=== PATIENT | female | born 1955 | race Caucasian/White ===

== ENCOUNTER 2017-06-22 12:51 | Outpatient (CLI) | payer OTHER ==
--- NOTE | 2017-06-23 15:16 | Mammography Report ---
DIGITAL SCREENING MAMMOGRAM: 06/22/2017 CLINICAL INDICATION: A 62-year-old, for screening. COMPARISON: 03/2015, 08/2012, 02/2008. TECHNIQUE: Routine CC and MLO projections were obtained of the breasts. FINDINGS: The breasts demonstrate scattered fibroglandular densities bilaterally. Punctate, typicall y benign calcifications are present. No suspicious masses, clustered microcalcifications, or regions of architectural distortion are identified. IMPRESSION: BENIGN FINDINGS. RECOMMENDATION: ROUTINE ANNUAL SCREENING UNLESS OTHERWISE CLINICALLY INDICATED. BIRADS CATEGORY 2-BENIGN FINDINGS. STANDARD QUALIFYING STATEMENTS 1. This examination was reviewed with the aid of Computer-Aided Detection (CAD). 2. A negative or benign imaging report should not delay biopsy if clinically suspicious findings are present. Consider surgical consultation if warranted. More than 5% of cancers are not identified by i maging. 3. Dense breasts may obscure an underlying neoplasm. JOB #: [id number] EXT JOB #:[id number]
== END 2017-06-22 12:52 | disposition home or self-care (01) ==
LOC: DI 12:51
PROVIDERS: ATTEND Internal Medicine
DX: Z12.31 Encounter for screening mammogram for malignant neoplasm of breast (principal)
CPT/HCPCS: 77067

== ENCOUNTER 2017-06-22 12:53 | Outpatient (CLI) | payer OTHER ==
--- NOTE | 2017-06-23 09:29 | DEXA Report ---
DEXA: 06/22/2017 CLINICAL INDICATION: Postmenopausal. TECHNIQUE: Dual energy x-ray absorptiometry (DXA) was performed on a [employer] system. Regions measured are the AP spine, femoral neck, and, if needed, forearm. COMPARISON: None. In accordance with the International Society for Clinical Densitometry (ISCD) guidelines, data from previous exams may be reanalyzed using current recommendations and techniques. This is done to allow a more accurate basis for comparison with the current study. FINDINGS: The data for the lumbar spine is as follows: REGION BMD (g/cm/cm) T-SCORE Z-SCORE L1 1.301 1.4 2.8 L2 1.368 1.4 2.8 L3 1.323 1.0 2.4 L4 1.258 0.5 1.9 TOTAL 1.309 1.1 2.5 NOTE: All evaluable vertebrae are used for classification. The data for the hip is as follows: REGION BMD (g/cm/cm) T-SCORE Z-SCORE Neck 0.775 -1.9 -0.6 TOTAL 0.888 -0.9 0.1 NOTE: The femoral neck or total proximal femur, whichever is lowest, is used for classification. IMPRESSION: THE WHO CLASSIFICATION BASED ON THE INTERNATIONAL REFERENCE STANDARD IS OSTEOPENIA. THE FRACTURE RISK IS INCREASED. RECOMMENDATION: Patients with diagnosis of osteoporosis or osteopenia should have regular bone mineral density assessment. For those eligible for Medicare, routine testing is allowed once every 2 years. Testing frequency can be increased for patients who have rapidly progressing disease or for those who are receiving medical therapy to restore bone mass. COMMENT: World Health Organization (WHO) definitions for osteoporosis and osteopenia: NORMAL BMD: T-score at -1.0 or higher, fracture risk is low. OSTEOPENIA BMD: T-score between -1.0 and -2.5, fracture risk is increased. OSTEOPOROSIS BMD: T-score at -2.5 or lower, fracture risk high. National Osteoporosis Foundation recommends: 1. Obtain adequate dietary calcium (at least 1200 mg per day) and vitamin D (400 -800 international units per day). 2. Participate, as appropriate, in regular weightbearing and muscle- strengthening exercise. 3. Avoid tobacco use and reduce alcohol and caffeine intake. 4. For more detailed information see the website at www.NOF.org. MTDD
== END 2017-06-22 12:54 | disposition home or self-care (01) ==
LOC: DI 12:53
PROVIDERS: ATTEND Internal Medicine
DX: Z13.820 Encounter for screening for osteoporosis (principal); M85.88 Other specified disorders of bone density and structure, other site; Z78.0 Asymptomatic menopausal state
CPT/HCPCS: 77080

== ENCOUNTER 2018-07-23 14:56 | Emergency (ER) | payer MEDICARE, OTHER ==
[2018-07-23 15:58] LABS: BASOPHILS # (AUTO) 0.1 10^3/uL (0.0-0.1); BASOPHILS % (AUTO) 0.9 %; EOSINOPHILS # (AUTO) 0.2 10^3/uL (0.0-0.7); EOSINOPHILS % (AUTO) 2.3 %; HGB - HEMOGLOBIN 13.6 g/dL (12.0-16.0); LYMPHOCYTES # (AUTO) 1.9 10^3/uL (1.5-3.5); LYMPHOCYTES % (AUTO) 26.1 %; MEAN CORPUSCULAR HGB CONC 34.2 g/dL (32.0-36.0); MEAN CORPUSCULAR VOLUME 93.7 fL (81.0-99.0); MEAN PLATELET VOLUME 6.7 fL (7.9-10.8); MONOCYTES # (AUTO) 0.5 10^3/uL (0.0-1.0); MONOCYTES % (AUTO) 6.5 %; NEUTROPHILS # (AUTO) 4.7 10^3/uL (1.5-6.6); NEUTROPHILS % (AUTO) 64.2 %; PLT - PLATELET COUNT 280 10^3/uL (130-450); RED BLOOD COUNT 4.23 10^6/uL (4.20-5.40); RED CELL DISTRIBUTION WIDTH 13.4 % (12.0-15.0); WHITE BLOOD COUNT 7.4 x10^3/uL (4.8-10.8)
[2018-07-23 16:03] LABS: ALBUMIN 4.4 g/dL (3.2-5.5); ALBUMIN/GLOBULIN RATIO 1.5 (1.0-2.2); BILIRUBIN,TOTAL 0.7 mg/dL (0.2-1.0); CALCIUM 10.1 mg/dL (8.5-10.3); CREATININE 0.6 mg/dL (0.4-1.0); TOTAL PROTEIN 7.4 g/dL (6.7-8.2)
--- NOTE | 2018-07-23 17:19 | XRAY Report ---
Reason: chest pain Procedure Date: 07/23/2018 Accession Number: [id number] / [id number] Procedure: XR - Chest 1 View X-Ray CPT Code: 92572 FULL RESULT: EXAM: CHEST RADIOGRAPHY EXAM DATE: 07/23/2018 04:48 PM. CLINICAL HISTORY: Left sided chest pain today COMPARISON: 04/23/2011 8:51 AM. TECHNIQUE: 1 view. FINDINGS: Lungs/Pleura: No focal opacities evident. No pleural effusion. No pneumothorax. Mediastinum: Within exam limitations, the cardiomediastinal contour is normal. Other: Multiple old healed right posterior rib fractures again noted. IMPRESSION: No acute cardiopulmonary disease seen. RADIA
[2018-07-23] MEDS ORDERED: MORPHINE 2 MG/ML SYRINGE IVP STA (17:24)
[2018-07-23] MEDS ORDERED: IOPAMIDOL-300 100 ML VIAL ONE (17:29)
[2018-07-23] MEDS ORDERED: IOPAMIDOL-300 100 ML VIAL IVP ONE (18:32)
--- NOTE | 2018-07-23 18:41 | CT Report ---
Reason: L chest pain to neck and back Procedure Date: 07/23/2018 Accession Number: [id number] / [id number] Procedure: CT - Chest Angio (AORTA) CPT Code: FULL RESULT: EXAM: CT ANGIOGRAM CHEST EXAM DATE: 07/23/2018 06:22 PM. CLINICAL HISTORY: Chest pain last night and severe chest and back pain. COMPARISONS: None. TECHNIQUE: Routine axial helical CT angiographic imaging was performed through the chest. IV Contrast: 100 ML ISOVUE 300. Reconstructions: Coronal, sagittal, and 3D MIP reconstructions of the aorta. In accordance with CT protocol optimization, one or more of the following dose reduction techniques were utilized for this exam: automated exposure control, adjustment of mA and/or KV based on patient size, or use of iterative reconstructive technique. FINDINGS: Mediastinum: No thoracic aortic aneurysm or dissection. Small aortic valve calcification. Coronary artery calcification. Heart size is within normal limits. No mediastinal or hilar lymphadenopathy. Small hiatal hernia. No evidence for pulmonary emboli. Lungs: No acute findings. No airspace disease, consolidation, pleural effusion or pneumothorax. No acute findings in the upper abdomen. Bones: No acute bone findings. IMPRESSION: 1. No thoracic aortic aneurysm or dissection. 2. No acute findings. 3. Small hiatal hernia. RADIA
--- NOTE | 2018-07-23 19:07 | ED Physician Documentation ---
PD HPI CHEST PAIN - Stated complaint Stated Complaint: CP - Chief complaint Chief Complaint: General - History obtained from History obtained from: Patient, Family - History of Present Illness Timing - onset: Yesterday Timing - onset during: Rest Timing - duration: Days (1) Timing - details: Gradual onset, Constant Pain level max: 8 Pain level now: 8 Quality: Aching, Pain Location: Left chest Radiation: Back, Abdominal Improved by: Nothing Worsened by: No: Exertion, Inspiration, Eating, Movement, Palpation, Position Associated symptoms: No: Shortness of air, Diaphoresis, Nausea, Vomiting, Feeling faint / dizzy, General Weakness, Palpitations, Cough Similar symptoms before: Has not had sx before Recently seen: Not recently seen - Additional information Additional information: Patient is a 63-year-old female who states that she had chest pressure starting today that started on her left rib and is now spread up to the shoulder and her left neck and left arm. It has been constant all day long. Nothing makes it better or worse. Has never had similar symptoms in the past. States it feels like a knife and is going to her back as well. Review of Systems Ten Systems: 10 systems reviewed and negative Constitutional: denies: Fever, Chills Ears: denies: Ear pain Nose: denies: Rhinorrhea / runny nose, Congestion Throat: denies: Sore throat Cardiac: denies: Palpitations GI: denies: Vomiting, Diarrhea Skin: denies: Rash Musculoskeletal: denies: Neck pain, Back pain Neurologic: denies: Focal weakness, Numbness, Headache PD PAST MEDICAL HISTORY - Past Medical History Cardiovascular: High cholesterol Endocrine/Autoimmune: HyPOthyroidism Psych: Depression Musculoskeletal: Osteoarthritis - Past Surgical History Past Surgical History: Yes Ortho: Other Neuro: Craniotomy - Present Medications Home Medications: Ambulatory Orders Medication Instructions Recorded Confirmed Dextroamphetamine/Amphetamine 20 mg PO DAILY 05/01/14 05/23/14 [Adderall 20 mg Tablet] Levothyroxine [Synthroid] 100 mcg PO DAILY 05/01/14 05/23/14 Simvastatin 20 mg PO DAILY 05/01/14 05/23/14 buPROPion [Wellbutrin Sr] 300 mg PO DAILY 05/01/14 05/23/14 lamoTRIgine [Lamictal] 100 mg PO DAILY 05/23/14 05/23/14 Hydrocodone/Acetaminophen 1 - 2 each PO Q6H PRN #10 tablet 07/23/18 [Hydrocodon-Acetaminophen 5-325] - Allergies Allergies/Adverse Reactions: Allergies Allergy/AdvReac Type Severity Reaction Status Date / Time No Known Drug Allergies Allergy Verified 05/01/14 08:12 - Social History Does the pt smoke?: No Smoking Status: Never smoker Does the pt drink ETOH?: No Does the pt have substance abuse?: No - POLST Patient has POLST: No PD ED PE NORMAL - Vitals Vital signs reviewed: Yes - General General: Alert and oriented X 3, No acute distress - HEENT HEENT: PERRL, Moist mucous membranes - Neck Neck: Supple, no meningeal sign, No JVD, No bruit - Cardiac Cardiac: RRR, No murmur, Strong equal pulses - Respiratory Respiratory: No respiratory distress, Clear bilaterally - Abdomen Abdomen: Soft, Non tender, Non distended - Derm Derm: Warm and dry, No rash - Extremities Extremities: No edema, No calf tenderness / cord - Neuro Neuro: Alert and oriented X 3, 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, No motor deficit, No sensory deficit Eye Opening: Spontaneous Motor: Obeys Commands Verbal: Oriented GCS Score: 15 - Psych Psych: Normal mood, Normal affect Results - Vitals Vitals: Vital Signs - 24 hr 07/23/18 07/23/18 07/23/18 15:15 17:31 19:44 Temperature 36.4 C L Heart Rate 95 81 82 Respiratory 18 12 16 Rate Blood Pressure 178/98 H 162/93 H 159/86 H O2 Saturation 100 95 98 Oxygen O2 Source Room air - EKG (time done) 1902 Rate: Rate (enter#) (72) Rhythm: NSR Darby: Normal Intervals: Normal [place] QRS: LVH Ischemia: Normal ST segments 1504 Rate: Rate (enter#) (98) Rhythm: NSR Darby: Normal Intervals: Normal [place] QRS: LVH Ischemia: Normal ST segments - Labs Labs: Laboratory Tests 07/23/18 07/23/18 07/23/18 15:45 15:45 15:45 WBC 7.4 RBC 4.23 Hgb 13.6 Hct 39.6 MCV 93.7 MCH 32.0 H MCHC 34.2 RDW 13.4 Plt Count 280 MPV 6.7 L Neut # (Auto) 4.7 Lymph # (Auto) 1.9 Denali # (Auto) 0.5 Eos # (Auto) 0.2 Baso # (Auto) 0.1 Absolute Nucleated RBC 0.01 Nucleated RBC % 0.1 Sodium 135 Potassium 4.1 Chloride 98 L Carbon Dioxide 26 Anion Gap 11.0 BUN 16 Creatinine 0.6 Estimated GFR (MDRD) 100 Glucose 99 Calcium 10.1 Total Bilirubin 0.7 AST 27 ALT 26 Alkaline Phosphatase 70 Troponin I < 0.04 Total Protein 7.4 Albumin 4.4 Globulin 3.0 Albumin/Globulin Ratio 1.5 Lipase 27 07/23/18 18:52 WBC RBC Hgb Hct MCV MCH MCHC RDW Plt Count MPV Neut # (Auto) Lymph # (Auto) Denali # (Auto) Eos # (Auto) Baso # (Auto) Absolute Nucleated RBC Nucleated RBC % Sodium Potassium Chloride Carbon Dioxide Anion Gap BUN Creatinine Estimated GFR (MDRD) Glucose Calcium Total Bilirubin AST ALT Alkaline Phosphatase Troponin I < 0.04 Total Protein Albumin Globulin Albumin/Globulin Ratio Lipase - Rads (name of study) cxr Radiology: Prelim report reviewed, EMP read contemporaneously, See rad report ( No acute disease) ct angio chest Radiology: Prelim report reviewed, EMP read contemporaneously, See rad report ( No acute abnormality) PD MEDICAL DECISION MAKING - ED course Complexity details: reviewed results, re-evaluated patient, considered differential (No ST elevation IN, no aortic dissection, no PE, no tension pneumothorax, no aortic aneurysm), d/w patient, d/w family ED course: Patient is a 63-year-old female with left-sided chest pain of unclear etiology. Negative troponin 2. No acute findings on EKG 2. Pain well controlled. No acute findings on chest x-ray or CT angiogram of the chest. No aortic dissection or pulmonary embolism. Will have her follow-up with her PCP for a cardiac stress test. Will place on pain medication and see how she progresses over the next 24 hours. Patient counseled regarding signs and symptoms for which I believe and urgent re-evaluation would be necessary. Patient with good understanding of and agreement to plan and is comfortable going home at this time This document was made in part using voice recognition software. While efforts are made to proofread this document, sound alike and grammatical errors may occur. - Sepsis Event Vital Signs: Vital Signs - 24 hr 07/23/18 07/23/18 07/23/18 15:15 17:31 19:44 Temperature 36.4 C L Heart Rate 95 81 82 Respiratory 18 12 16 Rate Blood Pressure 178/98 H 162/93 H 159/86 H O2 Saturation 100 95 98 Oxygen O2 Source Room air Departure - Departure Disposition: 01 Home, Self Care Clinical Impression: Chest pain Qualifiers: Chest pain type: unspecified Qualified Code(s): R07.9 - Chest pain, unspecified Condition: Good Instructions: ED Chest Pain Atypical Unkn Cause Follow-Up: Tiffany Castillo MD [Primary Care Provider] - Within 1 week Prescriptions: Hydrocodone/Acetaminophen [Hydrocodon-Acetaminophen 5-325] 1 - 2 each PO Q6H PRN #10 tablet PRN Reason: pain Comments: The cause of your symptoms is unclear today. Your tests are normal. Return if you worsen. Do not drink alcohol or drive while on narcotic pain medicine. Note that many narcotic pain relievers also contain tylenol/acetaminophen. Please ensure that your total dose of acetaminophen from all sources does not exceed 3 grams (3000mg) per day. You may constipated on this medication, take a stool softener such as "Colace" twice a day while you are on it. Also recommend a ucsi-frk-grkobce laxative such as senna or MiraLAX any day that you do not have a bowel movement. If you received narcotic pain medication in the emergency department, do not drive or operate machinery for the next 24 hours. Discharge Date/Time: 07/23/18 19:44
[2018-07-23] MEDS ORDERED: HYDROcod/ACETAM 5/325 MG TABLET PO STA (19:14)
[2018-07-23 19:44] VITALS: BP 159/86
== END 2018-07-23 19:44 | disposition home or self-care (01) ==
LOC: ED 14:56
DX: R07.9 Chest pain, unspecified (principal); R94.31 Abnormal electrocardiogram [ECG] [EKG]; E03.9 Hypothyroidism, unspecified; E78.00 Pure hypercholesterolemia, unspecified
CPT/HCPCS: 36415; 71045; 71275; 80053; 83690; 84484; 85025; 93005; 96374; 99283; A9270; J2270; Q9967

== ENCOUNTER 2018-08-31 12:32 | Outpatient (CLI) | payer MEDICARE, OTHER ==
[2018-08-31 13:08] LABS: BASOPHILS % (AUTO) 0.7 %; EOSINOPHILS # (AUTO) 0.2 10^3/uL (0.0-0.7); EOSINOPHILS % (AUTO) 3.5 %; HGB - HEMOGLOBIN 12.5 g/dL (12.0-16.0); LYMPHOCYTES # (AUTO) 1.8 10^3/uL (1.5-3.5); LYMPHOCYTES % (AUTO) 31.9 %; MEAN CORPUSCULAR HEMOGLOBIN 33.2 pg (27.0-31.0); MEAN CORPUSCULAR HGB CONC 34.9 g/dL (32.0-36.0); MEAN CORPUSCULAR VOLUME 94.9 fL (81.0-99.0); MEAN PLATELET VOLUME 6.4 fL (7.9-10.8); MONOCYTES # (AUTO) 0.4 10^3/uL (0.0-1.0); MONOCYTES % (AUTO) 7.4 %; NEUTROPHILS # (AUTO) 3.2 10^3/uL (1.5-6.6); NEUTROPHILS % (AUTO) 56.5 %; PLT - PLATELET COUNT 283 10^3/uL (130-450); RED BLOOD COUNT 3.78 10^6/uL (4.20-5.40); RED CELL DISTRIBUTION WIDTH 13.7 % (12.0-15.0); WHITE BLOOD COUNT 5.7 x10^3/uL (4.8-10.8)
== END 2018-08-31 12:33 | disposition home or self-care (01) ==
LOC: LAB 12:32
PROVIDERS: ATTEND Orthopaedic Surgery
DX: Z01.812 Encounter for preprocedural laboratory examination (principal)
CPT/HCPCS: 36415; 80051; 85025

== ENCOUNTER 2018-09-04 19:30 | Outpatient (CLI) | payer MEDICARE, OTHER | END 2018-09-04 19:31 | disposition critical access hospital (66) | LOC: EMS 19:30 | PROVIDERS: ATTEND Surgery | DX: R09.89 Other specified symptoms and signs involving the circulatory and respiratory systems (principal) | CPT/HCPCS: A0425; A0429 ==

== ENCOUNTER 2018-09-04 19:48 | Emergency (ER) | payer MEDICARE, OTHER ==
[2018-09-04] MEDS ORDERED: MAG HYDROX/AL HYDROX/SIMETH 30 ML UDC PO STA (20:00)
[2018-09-04] MEDS ORDERED: LIDOCAINE VISCOUS 2% 15 ML UDC MM STA (20:00)
--- NOTE | 2018-09-04 20:03 | ED Physician Documentation ---
History of Present Illness - Stated complaint Stated Complaint: FB IN THROAT - Chief complaint Chief Complaint: Resp - History obtained from History obtained from: Patient, Family, EMS - History of Present Illness Timing: Today (She was eating steak and felt like it got stuck. She is not having difficulty with her secretions or talking now, but still has some upper chest pain from it.) Review of Systems Constitutional: denies: Fever, Chills Nose: denies: Rhinorrhea / runny nose, Congestion Throat: reports: Sore throat Respiratory: reports: Reviewed and negative PD PAST MEDICAL HISTORY - Past Medical History Cardiovascular: High cholesterol Endocrine/Autoimmune: HyPOthyroidism Psych: Depression Musculoskeletal: Osteoarthritis - Past Surgical History Past Surgical History: Yes Ortho: Other Neuro: Craniotomy - Present Medications Home Medications: Ambulatory Orders Medication Instructions Recorded Confirmed Dextroamphetamine/Amphetamine 20 mg PO DAILY 05/01/14 09/04/18 [Adderall 20 mg Tablet] RX: Levothyroxine [Synthroid] 100 mcg PO DAILY 05/01/14 09/04/18 RX: Simvastatin 20 mg PO DAILY 05/01/14 09/04/18 buPROPion [Wellbutrin Sr] 300 mg PO DAILY 05/01/14 09/04/18 lamoTRIgine [Lamictal] 100 mg PO DAILY 05/23/14 09/04/18 - Allergies Allergies/Adverse Reactions: Allergies Allergy/AdvReac Type Severity Reaction Status Date / Time No Known Drug Allergies Allergy Verified 09/04/18 19:53 - Social History Does the pt smoke?: No Smoking Status: Never smoker Does the pt drink ETOH?: No Does the pt have substance abuse?: No - POLST Patient has POLST: No PD ED PE NORMAL - Vitals Vital signs reviewed: Yes - General General: Alert and oriented X 3, No acute distress - HEENT HEENT: Other (speaking normal, no noted POP FB) - Neck Neck: Supple, no meningeal sign, No bony TTP - Neuro Neuro: Alert and oriented X 3, Normal speech - Psych Psych: Normal mood, Normal affect Results - Vitals Vitals: Vital Signs - 24 hr 09/04/18 19:51 Temperature 36.7 C Heart Rate 100 Respiratory 17 Rate Blood Pressure 154/77 H O2 Saturation 97 Oxygen O2 Source Room air - Rads (name of study) 2v chest Radiology: EMP read contemporaneously (No pneumomediastinum or evidence of aspiration) PD MEDICAL DECISION MAKING - ED course ED course: On arrival she is able to tolerate PO liquids, so suspect esophageal FB resolved MACHINE TECHNICIAN Advised followup EGD- this is recurrent for her. - Sepsis Event Vital Signs: Vital Signs - 24 hr 09/04/18 19:51 Temperature 36.7 C Heart Rate 100 Respiratory 17 Rate Blood Pressure 154/77 H O2 Saturation 97 Oxygen O2 Source Room air Departure - Departure Disposition: 01 Home, Self Care Clinical Impression: Esophageal foreign body Condition: Good Record reviewed to determine appropriate education?: Yes Instructions: ED Foreign Body Esophageal Rslv Follow-Up: Denton Araujo MD [Provider Admit Priv/Credential] - Comments: As discussed, given that this is a recurrent issue you should follow-up with someone who can do an upper endoscopy, one such surgeon is listed on this form. Call his office for an appointment. Return if worse or if new symptoms develop. Consider eating just a soft diet for the next few days. Your blood pressure was elevated today on check into the emergency department. This does not mean that you have hypertension, it is a common phenomenon to come to the emergency department and have elevated blood pressure. I recommend that you see your primary care physician within the week to have it rechecked when you are feeling better. Discharge Date/Time: 09/04/18 20:55
--- NOTE | 2018-09-04 20:41 | XRAY Report ---
Reason: poss aspiration Procedure Date: 09/04/2018 Accession Number: [id number] / [id number] Procedure: XR - Chest 2 View X-Ray CPT Code: 28250 FULL RESULT: EXAM: CHEST RADIOGRAPHY EXAM DATE: 09/04/2018 08:24 PM. CLINICAL HISTORY: Trouble swallowing. Short of breath. Possible aspiration. COMPARISON: 07/23/2018 CT and chest x-ray. TECHNIQUE: 2 views. FINDINGS: Lungs/Pleura: No focal opacities evident. No pleural effusion. No pneumothorax. Normal volumes. Mediastinum: Heart size is normal. There is a hiatal hernia, as before with a transverse dimension measuring 7.6 cm. Aorta is mildly tortuous. There is mild to moderate gaseous distention of the esophagus. No evidence of pneumomediastinum. Other: Degenerative changes of the thoracic spine and both shoulders. IMPRESSION: 1. No acute disease in the chest. 2. Mild to moderate gaseous distention of the esophagus. 3. Hiatal hernia. 4. No evidence of pneumomediastinum. RADIA
[2018-09-04 21:00] VITALS: BP 131/84
== END 2018-09-04 20:55 | disposition home or self-care (01) ==
LOC: EDBD → EDUNIT# → ED 19:48
DX: T18.128A Food in esophagus causing other injury, initial encounter (principal); X58.XXXA Exposure to other specified factors, initial encounter; R03.0 Elevated blood-pressure reading, without diagnosis of hypertension; E78.00 Pure hypercholesterolemia, unspecified; E03.9 Hypothyroidism, unspecified
CPT/HCPCS: 71046; 99282; 99283; A9270

== ENCOUNTER 2021-12-19 07:05 | Outpatient (CLI) | payer MEDICARE, OTHER ==
--- NOTE | 2021-12-19 08:21 | Ultrasound Report ---
PROCEDURE: Head or Neck Soft Tissue INDICATIONS: HYPOTHYROIDISM TECHNIQUE: Real-time scanning was performed of the thyroid gland, with image documentation. COMPARISON: 01/16/2013, 10/08/2008 FINDINGS: Right: Thyroid lobe measures 3.7 x 1.1 x 1.3 cm. Left: Thyroid lobe measures 3.4 x 0.6 x 1.3 cm, and is homogenous in echotexture. Isthmus: 2 mm thick. Nodule number: 1 Location: Right thyroid inferiorly Size: 0.7 x 0.2 x 0.5 cm, prior 0.8 x 0.7 x 0.4 cm. Composition: Solid Echogenicity: Isoechoic Shape: wider than tall. Margins: Smooth Echogenic foci: None. Total points: 3 ACR TI-RADS category: 3 Nodule number: 2 Location: Right mid thyroid Size: 0.8 x 0.6 x 0.5 cm, prior 0.6 x 0.5 x 0.5 cm. Composition: Predominantly solid Echogenicity: Hypoechoic Shape: wider than tall. Margins: Irregular Echogenic foci: Punctate Total points: 9 ACR TI-RADS category: 5 The previously described isthmus nodule is not seen on the current study. IMPRESSION: Right-sided thyroid nodules are seen. There is a highly suspicious nodule seen within th e mid thyroid, which is increased in size compared to 2013. By published criteria, annual follow-up i s recommended. ACR TI-RADS definitions and recommendations: TI-RADS 1 (benign): 0 points. FNA not needed. TI-RADS 2 (not suspicious): 2 points. FNA not needed. TI-RADS 3 (mildly suspicious): 3 points. "FNA if 2.5 cm or larger, follow up if 1.5 cm or larger (at 1, 3, and 5 years). TI-RADS 4 (moderately suspicious): 4-6 points. "FNA if 1.5 cm or larger, follow up if 1 cm or larger (at 1, 2, 3, and 5 years). TI-RADS 5 (highly suspicious): 7 points or more. "FNA if 1 cm or larger, follow up if 0.5 cm or larger (every year for 5 years). Reviewed by: Howie Wynne MD on 12/19/2021 7:19 AM [place] Approved by: Howie Wynne MD on 12/19/2021 7:19 AM [facility] Station ID: [id number]
== END 2021-12-19 07:06 | disposition home or self-care (01) ==
LOC: DI 07:05
PROVIDERS: ATTEND Internal Medicine
DX: E04.2 Nontoxic multinodular goiter (principal); E03.9 Hypothyroidism, unspecified

== ENCOUNTER 2022-01-14 08:14 | Outpatient (CLI) | payer MEDICARE, OTHER ==
--- NOTE | 2022-01-14 09:33 | DEXA Report ---
PROCEDURE: Dexa Spine and/or Hip INDICATIONS: OSTEOPOROSIS TECHNIQUE: Dual energy x-ray absorptiometry (DXA) was performed on a [employer] System. Regions measur ed are the AP Spine, femoral neck, and if needed forearm. COMPARISON: None. FINDINGS: Lumbar Spine: Bone Mineral Density 1.275 g/cm/cm,T score 0.8, normal. Decreased 2.6 compared to prior. Left Hip: Bone Mineral Density 0.830 g/cm/cm,T score -1.4, osteopeniaDecrease 6.5% compared to prior. Left Femoral Neck: Bone Mineral Density 0.741 g/cm/cm, T score -2.1, osteopenia. (T score greater or equal to -1.0: NORMAL) (T score from -1.1 to -2.4: OSTEOPENIA) (T score less than or equal to -2.5 to: OSTEOPOROSIS) Impression: Bone mineral density with a classification of osteopenia. Bone mineral density is decreas ed compared to prior DEXA scan on 06/22/2017. Patients with diagnosis of osteoporosis or osteopenia should have regular bone mineral density assess ment. For those eligible for Medicare, routine testing is allowed once every 2 years. Testing frequ ency can be increased for patients who have rapidly progressing disease or for those who are receivin g medical therapy to restore bone mass. Reviewed by: Isma Luther on 01/14/2022 9:32 AM PST Approved by: Isma Luther on 01/14/2022 9:32 AM PST Station ID: [id number]
== END 2022-01-14 08:15 | disposition home or self-care (01) ==
LOC: DI 08:14
PROVIDERS: ATTEND Internal Medicine
DX: M85.89 Other specified disorders of bone density and structure, multiple sites (principal)

== ENCOUNTER 2022-02-09 15:33 | Outpatient (CLI) | payer MEDICARE, OTHER ==
--- NOTE | 2022-02-10 10:41 | Mammography Report ---
BILATERAL DIGITAL SCREENING MAMMOGRAM 3D/2D: 02/09/2022 CLINICAL: Routine screening. Comparison is made to exams dated: 06/22/2017 mammogram and 04/09/2015 mammogram - [facility]. There are scattered fibroglandular elements in both breasts. No significant masses, calcifications, or other findings are seen in either breast. There has been no significant interval change. IMPRESSION: NEGATIVE There is no mammographic evidence of malignancy. A 1 year screening mammogram is recommended. This exam was interpreted at Station ID: [id number]. NOTE: For mammograms, a report in lay terms will be sent to the patient. Approximately 15% of breast malignancies will not be visualized mammographically. In the management of a palpable breast mass, a negative mammogram must not discourage biopsy of a clinically suspicious lesion. Electronically Signed By: Carlitos Yao M.D. aty/penrad:02/10/2022 07:25:00 ACR BI-RADS Category 1: Negative [id number] PARENCHYMAL PATTERN: (A) - The breast(s) demonstrate(s) scattered fibroglandular densities. BI-RADS CATEGORY: (1) - 1 RECOMMENDATION: (ANNUAL) - Recommend routine annual screening mammography. [id number] 1 year screening LATERALITY: (B)
== END 2022-02-09 15:34 | disposition home or self-care (01) ==
LOC: DI.N 15:33
PROVIDERS: ATTEND Internal Medicine
DX: Z12.31 Encounter for screening mammogram for malignant neoplasm of breast (principal)